=== PATIENT | female | born 1965 | race Caucasian/White ===

== ENCOUNTER 2016-08-28 23:36 | Emergency (ER) | payer SELFPAY ==
[2016-08-29 01:05] LABS: ABSOLUTE BASOPHILS # (AUTO) 0.1 10^3/uL (0.0-0.2); ABSOLUTE EOSINOPHILS # (AUTO) 0.4 10^3/uL (0.0-0.6); ABSOLUTE LYMPHOCYTES (AUTO) 3.3 10^3/uL (0.5-4.7); ABSOLUTE MONOCYTES (AUTO) 1.1 10^3/uL (0.1-1.4); ABSOLUTE NEUT (AUTO) 6.1 10^3/uL (1.7-8.2); BASOPHILS % (AUTO) 1.3 % (0-2); EOSINOPHILS % (AUTO) 3.3 % (0-6); HEMATOCRIT 39.9 % (36.0-47.0); HEMOGLOBIN 13.5 g/dL (12.0-15.5); HGB HCT DIFFERENCE 0.6; LYMPHOCYTES % (AUTO) 29.9 % (13-45); MEAN CORPUSCULAR HEMOGLOBIN 29.3 pg (27.0-33.4); MEAN CORPUSCULAR HGB CONC 33.8 g/dL (32.0-36.0); MEAN CORPUSCULAR VOLUME 87 fl (80-97); MONOCYTES % (AUTO) 10.2 % (3-13); RED BLOOD COUNT 4.61 10^6/uL (3.72-5.28); RED CELL DISTRIBUTION WIDTH 12.5 % (11.5-14.0); SEGMENTED NEUTROPHILS % (AUTO) 55.3 % (42-78)
[2016-08-29 01:17] LABS: ALANINE AMINOTRANSFERASE 56 U/L (9-52); ALBUMIN 4.3 g/dL (3.5-5.0); ALKALINE PHOSPHATASE 111 U/L (38-126); ANION GAP 13 (5-19); ASPARTATE AMINO TRANSFERASE 23 U/L (14-36); BILIRUBIN,DIRECT 0.3 mg/dL (0.0-0.4); BILIRUBIN,TOTAL 0.4 mg/dL (0.2-1.3); BLOOD UREA NITROGEN 11 mg/dL (7-20); CALCIUM 10.1 mg/dL (8.4-10.2); CARBON DIOXIDE 23 mmol/L (22-30); CHLORIDE 109 mmol/L (98-107); CREATININE RESULT 0.77 mg/dL (0.52-1.25); GLUCOSE 96 mg/dL (75-110); POTASSIUM 4.5 mmol/L (3.6-5.0); TOTAL PROTEIN 7.7 g/dL (6.3-8.2)
[2016-08-29] MEDS ORDERED: SULFAMETHOXAZOLE/TRIMETHOPRIM 800-160 MG TABLET PO ONE (02:53)
[2016-08-29] MEDS ORDERED: CEPHALEXIN 500 MG CAPSULE PO ONE (02:53)
[2016-08-29] MEDS ORDERED: HYDROCODONE/ACETAMINOPHEN 5-325 MG 6 TAB/DSPK PO PRN (02:53)
[2016-08-29] MEDS ORDERED: ONDANSETRON ODT 4 MG TAB (6 TAB/DSPK) PO PRN (02:53)
[2016-08-29] MEDS ORDERED: SILVER SULFADIAZINE 1% CREAM 50 GM TP ONE (02:54)
[2016-08-29] MEDS ORDERED: CIPROFLOXACIN HCL 500 MG TABLET PO ONE (02:58)
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
[2016-08-29] MEDS ORDERED: SILVER SULFADIAZINE 1% CREAM 50 GM ONE (03:33)
[2016-08-29 04:04] VITALS: BP 128/87
== END 2016-08-29 04:01 | disposition home or self-care (01) ==
LOC: ER 23:36
DX: T24.211A Burn of second degree of right thigh, initial encounter (principal); R53.83 Other fatigue; R11.0 Nausea; R50.9 Fever, unspecified; X08.8XXA Exposure to other specified smoke, fire and flames, initial encounter
CPT/HCPCS: 36415; 80053; 85025; 99283; J3490

== ENCOUNTER 2016-10-21 17:54 | Emergency (ER) | payer SELFPAY ==
--- NOTE | 2016-10-21 19:03 | ER Document Report ---
ED Medical Screen (RME) - General TRAVEL OUTSIDE OF THE [place] IN LAST 30 DAYS: No <STEFANI DICKEY - Last Filed: 10/21/16 18:59> <CINDY CORRAL - Last Filed: 12/04/16 14:09> - General Chief Complaint: Chest Pain Stated Complaint: CHEST PAIN Notes: Patient is a 51-year-old female presenting to the emergency department for right upper quadrant abdominal pain and right flank pain. Patient states her pain has been present over the past few days. Pain is exacerbated with food. Patient states her pain was waxing and waning but now it is getting worse. Patient complains of vomiting but denies diarrhea, fever, or any injuries. Patient states she is a history of kidney stones. I have greeted and performed a rapid initial assessment of this patient. A comprehensive ED assessment and evaluation of the patient, analysis of test results and completion of the medical decision making process will be conducted by additional ED providers. (STEFANI DICKEY) - Related Data Allergies/Adverse Reactions: bananas Adverse Reaction (Severe, Uncoded 10/21/16 18:50) swelling gas hives Past Medical History - Past Medical History Cardiac Medical History: Reports: Hx Hypertension Renal/ Medical History: Reports: Hx Kidney Stones. Denies: Hx Peritoneal Dialysis Past Surgical History: Reports: Hx Hysterectomy - partial, Hx Orthopedic Surgery - back - Immunizations Hx Diphtheria, Pertussis, Tetanus Vaccination: Yes <STEFANI DICKEY - Last Filed: 10/21/16 18:59> - Social History Cigarette use (# per day): No <CINDY CORRAL - Last Filed: 12/04/16 14:09> Review of Systems - Review of Systems -: Yes All other systems reviewed and negative <CINDY CORRAL - Last Filed: 12/04/16 14:09> Physical Exam <STEFANI DICKEY - Last Filed: 10/21/16 18:59> <CINDY CORRAL - Last Filed: 12/04/16 14:09> - Vital signs Vitals: Temp Pulse Resp BP Pulse Ox 97.9 F 102 H 18 146/89 H 96 10/21/16 18:21 10/21/16 18:21 10/21/16 18:21 10/21/16 18:21 10/21/16 18:21 - Notes Notes: GENERAL: Alert, appears uncomfortable, pacing in room and clutching right side. Mild distress. LUNGS: Clear to auscultation bilaterally, no wheezes, rales, or rhonchi. No respiratory distress. HEART: Regular rate and rhythm. No murmurs, gallops, or rubs. ABDOMEN: Tenderness to palpation in the right upper quadrant, mild right CVA tenderness; pain appears to be more lateral on the right side. (STEFANI DICKEY) Course - Laboratory Result Diagrams: 10/21/16 19:11 10/21/16 19:11 <CINDY CORRAL - Last Filed: 12/04/16 14:09> - Vital Signs Vital signs: Temp Pulse Resp BP Pulse Ox 98.0 F 102 H 16 129/84 H 98 10/22/16 00:25 10/21/16 18:21 10/22/16 00:30 10/22/16 00:30 10/22/16 00:30 - Laboratory Laboratory results interpreted by me: 10/21/16 10/21/16 10/21/16 19:11 19:11 19:45 Monocytes % 13.8 H Eosinophils % 6.7 H Absolute Monocytes 1.5 H Absolute Eosinophils 0.7 H Glucose 113 H Urine Blood SMALL H Doctor's Discharge <STEFANI DICKEY - Last Filed: 10/21/16 18:59> <CINDY CORRAL - Last Filed: 12/04/16 14:09> - Discharge Clinical Impression: Rib pain, Thoracic back pain Condition: Good Disposition: HOME, SELF-CARE Additional Instructions: Your chest wall pain is due to inflammation of your ribs. This pain can last for up to 6 weeks. It is very important that you continue to take purposeful deep breaths. For your pain: Continue to take ibuprofen 600 mg every 6 hours or Tylenol 1000 mg every 6 hours. Apply local lidocaine to the area per bottle instructions. There is a product sold [id number] called "Aspercreme with lidocaine" that you can use for this purpose. Please follow-up with her primary care doctor in the next 2-3 days. Return to the emergency department immediately if you develop worsening shortness of breath, increased pain, begin coughing blood, pass out, or have any other symptoms that are worrisome to you. Scribe Documentation - Scribe Written by Jame:: Jame Warren, 10/21/2016 1900 acting as scribe for :: Vishnu <STEFANI DICKEY - Last Filed: 10/21/16 18:59>
[2016-10-21] MEDS ORDERED: HYDROMORPHONE HCL INJ/PF 2 MG/ML AMPULE IV ONE ×2 (19:14→20:57)
[2016-10-21] MEDS ORDERED: ONDANSETRON HCL INJ/PF 4 MG/2 ML SDV IV ONE ×2 (19:14→20:22)
[2016-10-21] MEDS ORDERED: NORMAL SALINE 500 ML IV ONE (19:19)
[2016-10-21 19:35] LABS: ABSOLUTE BASOPHILS # (AUTO) 0.1 10^3/uL (0.0-0.2); ABSOLUTE EOSINOPHILS # (AUTO) 0.7 10^3/uL (0.0-0.6); ABSOLUTE LYMPHOCYTES (AUTO) 3.7 10^3/uL (0.5-4.7); ABSOLUTE MONOCYTES (AUTO) 1.5 10^3/uL (0.1-1.4); ABSOLUTE NEUT (AUTO) 4.6 10^3/uL (1.7-8.2); BASOPHILS % (AUTO) 1.1 % (0-2); EOSINOPHILS % (AUTO) 6.7 % (0-6); HEMATOCRIT 38.6 % (36.0-47.0); HGB HCT DIFFERENCE 0.4; LYMPHOCYTES % (AUTO) 34.9 % (13-45); MEAN CORPUSCULAR HEMOGLOBIN 29.5 pg (27.0-33.4); MEAN CORPUSCULAR HGB CONC 33.8 g/dL (32.0-36.0); MEAN CORPUSCULAR VOLUME 87 fl (80-97); MONOCYTES % (AUTO) 13.8 % (3-13); RED BLOOD COUNT 4.43 10^6/uL (3.72-5.28); SEGMENTED NEUTROPHILS % (AUTO) 43.5 % (42-78); WHITE BLOOD COUNT 10.5 10^3/uL (4.0-10.5)
[2016-10-21 19:58] LABS: ALANINE AMINOTRANSFERASE 29 U/L (9-52); ALBUMIN 4.3 g/dL (3.5-5.0); ALKALINE PHOSPHATASE 96 U/L (38-126); ANION GAP 13 (5-19); ASPARTATE AMINO TRANSFERASE 32 U/L (14-36); BILIRUBIN,DIRECT 0.3 mg/dL (0.0-0.4); BILIRUBIN,TOTAL 0.4 mg/dL (0.2-1.3); BLOOD UREA NITROGEN 14 mg/dL (7-20); CALCIUM 9.8 mg/dL (8.4-10.2); CARBON DIOXIDE 24 mmol/L (22-30); CHLORIDE 101 mmol/L (98-107); CREATININE RESULT 0.75 mg/dL (0.52-1.25); GLUCOSE 113 mg/dL (75-110); LIPASE 84.9 U/L (23-300); POTASSIUM 4.4 mmol/L (3.6-5.0); TOTAL PROTEIN 7.9 g/dL (6.3-8.2)
[2016-10-21 20:08] LABS: APPEARANCE,URINE CLEAR; BILIRUBIN,URINE NEGATIVE (NEGATIVE); GLUCOSE, URINE NEGATIVE (NEGATIVE); KETONES,URINE NEGATIVE (NEGATIVE); LEUKOCYTE ESTERASE,URINE NEGATIVE (NEGATIVE); NITRITE,URINE NEGATIVE (NEGATIVE); PROTEIN,URINE NEGATIVE (NEGATIVE); URINE SPECIFIC GRAVITY 1.018; UROBILINOGEN,URINE NEGATIVE mg/dL (<2.0)
--- NOTE | 2016-10-21 20:59 | RADIOLOGY REPORT (SQ) ---
EXAM DESCRIPTION: CT ABD/PELVIS NO ORAL OR IV COMPLETED DATE/TIME: 10/21/2016 8:43 pm REASON FOR STUDY: Right Flank pain COMPARISON: None. TECHNIQUE: CT scan of the abdomen and pelvis performed without intravenous or oral contrast. Images reviewed with lung, soft tissue, and bone windows. Reconstructed coronal and sagittal MPR images revi ewed. All images stored on PACS. All CT scanners at this facility use dose modulation, iterative reconstruction, and/or weight based d osing when appropriate to reduce radiation dose to as low as reasonably achievable (ALARA). [facility]: Dose Right [facility]: CareDose [facility]: Dose Right [facility]: Teradose 4D [facility]: PagerDuty RADIATION DOSE: 13.68mGy. LIMITATIONS: None. FINDINGS: LOWER CHEST: No significant findings. No nodules or infiltrates. NON-CONTRASTED LIVER, SPLEEN, ADRENALS: Evaluation limited by lack of IV contrast. No identified sign ificant masses. PANCREAS: No masses. No peripancreatic inflammatory changes. GALLBLADDER: No identified stones by CT criteria. No inflammatory changes to suggest cholecystitis. RIGHT KIDNEY AND URETER: No suspicious masses. Assessment limited by lack of IV contrast. No signif icant calcifications. No hydronephrosis or hydroureter. LEFT KIDNEY AND URETER: No suspicious masses. Assessment limited by lack of IV contrast. No signifi cant calcifications. No hydronephrosis or hydroureter. AORTA AND RETROPERITONEUM: No aneurysm. No retroperitoneal masses or adenopathy. BOWEL AND PERITONEAL CAVITY: No obvious masses or inflammatory changes. No free fluid. APPENDIX: Normal. PELVIS, BLADDER, AND ABDOMINAL WALL:No abnormal masses. No free fluid. Bladder normal. BONES: There are postsurgical changes in the lumbar spine. OTHER: No other significant finding. IMPRESSION: NO SIGNIFICANT OR ACUTE PROCESS IN THE ABDOMEN OR PELVIS. TECHNICAL DOCUMENTATION: JOB ID: [id number] Quality ID # 436: Final reports with documentation of one or more dose reduction techniques (e.g., Au tomated exposure control, adjustment of the mA and/or kV according to patient size, use of iterative reconstruction technique) 2010 [employer]- All Rights Reserved
[2016-10-21] MEDS ORDERED: LIDOCAINE 5% (700 MG) TRANSDERMAL ADH..PATCH TP ONE (22:20)
[2016-10-21] MEDS ORDERED: KETOROLAC TROMETHAMINE INJ/PF 30 MG/1 ML SDV IV ONE (22:20)
--- NOTE | 2016-10-21 22:22 | ER Document Report ---
ED General - General Chief Complaint: Chest Pain Stated Complaint: CHEST PAIN Time Seen by Provider: 10/21/16 18:55 Notes: Patient is a 51-year-old female with past medical history of chronic back pain with chronic narcotic dependency who presents with 3 days of progressively worsening right flank and upper abdominal pain. Does describe it as a severe, constant stabbing pain. States movement or taking a deep breath worsens the pain. Nothing improves the pain. She has not seen a primary care doctor regarding this pain. Notes that she has had several episodes of associated vomiting. Has been able to tolerate oral intake. Denies any acute injury to the area. No history of similar symptoms in the past. Denies any associated hemoptysis, shortness of breath or syncope. TRAVEL OUTSIDE OF THE [place] IN LAST 30 DAYS: No - Related Data Allergies/Adverse Reactions: bananas Adverse Reaction (Severe, Uncoded 10/21/16 18:50) swelling gas hives Past Medical History - General Information source: Patient - Social History Smoking Status: Never Smoker Frequency of alcohol use: None Drug Abuse: None Lives with: Spouse/Significant other Family History: Reviewed & Not Pertinent Patient has suicidal ideation: No Patient has homicidal ideation: No - Past Medical History Cardiac Medical History: Reports: Hx Hypertension Renal/ Medical History: Reports: Hx Kidney Stones. Denies: Hx Peritoneal Dialysis Past Surgical History: Reports: Hx Hysterectomy - partial, Hx Orthopedic Surgery - back - Immunizations Hx Diphtheria, Pertussis, Tetanus Vaccination: Yes Review of Systems - Review of Systems Notes: Constitutional: Negative for fever. HENT: Negative for sore throat. Eyes: Negative for visual changes. Cardiovascular: Negative for chest pain. Respiratory: Negative for shortness of breath. Gastrointestinal: Negative for abdominal pain, vomiting or diarrhea. Genitourinary: Negative for dysuria. Musculoskeletal: Positive for right lower rib pain Skin: Negative for rash. Neurological: Negative for headaches, weakness or numbness. 10 point ROS negative except as marked above and in HPI. Physical Exam - Vital signs Vitals: Temp Pulse Resp BP Pulse Ox 97.9 F 102 H 18 146/89 H 96 10/21/16 18:21 10/21/16 18:21 10/21/16 18:21 10/21/16 18:21 10/21/16 18:21 Interpretation: Hypertensive, Tachycardic Notes: PHYSICAL EXAMINATION: GENERAL: Appears mildly uncomfortable but in no acute distress HEAD: Atraumatic, normocephalic. EYES: Pupils equal round and reactive to light, extraocular movements intact, sclera anicteric, conjunctiva are normal. ENT: nares patent, oropharynx clear without exudates. Moist mucous membranes. NECK: Normal range of motion, supple without lymphadenopathy LUNGS: Breath sounds clear to auscultation bilaterally and equal. No wheezes rales or rhonchi. HEART: Regular rate and rhythm without murmurs Chest wall: Acutely reproducible pain on palpation of the right lower ribs and right low thoracic back ABDOMEN: Soft, nontender, normoactive bowel sounds. No guarding, no rebound. No masses appreciated. EXTREMITIES: Normal range of motion, no pitting or edema. No cyanosis. NEUROLOGICAL: No focal neurological deficits. Moves all extremities spontaneously and on command. PSYCH: Normal mood, normal affect. SKIN: Warm, Dry, normal turgor, no rashes or lesions noted. Course - Re-evaluation Re-evalutation: 10/21/16 22:21 Patient presents with 3 days of progressively worsening right lower rib pain. On examination she has no focal abdominal tenderness but does have acute tenderness of the right to most inferior ribs which are exacerbated by movement and palpation of the area. She also has associated spasm in her low back. Patient is on chronic narcotics and I suspect a component of hyperalgesia. The patient was mildly tachycardic at time of assessment and alternative diagnostic consideration would be an acute pulmonary embolus. Given her tachycardia she cannot be excluded by PERC criteria and a d-dimer assay will be obtained. In triage CT without contrast of the abdomen and pelvis was obtained apparently for concern of a history of possible nephrolithiasis although again today patient's history is not consistent with this diagnosis. A CT scan did not demonstrate any acute pathology and did visualize a normal gallbladder and no evidence of acute nephrolithiasis or perinephric stranding. No evidence of aortic pathology. If d-dimer is negative will plan for discharge home with a suspect diagnosis of musculoskeletal rib pain and supportive care. Remaining labs are otherwise unremarkable without any evidence of an acute pancreatitis, hepatitis. 10/21/16 23:51 D-dimer is negative. Patient's pain is improved at this time. Her vitals are otherwise remained within normal limits. At this time will discharge with return precautions and follow-up recommendations. Verbal discharge instructions given a the bedside and opportunity for questions given. Medication warnings reviewed. Patient is in agreement with this plan and has verbalized understanding of return precautions and the need for primary care follow-up in the next 24-72 hours. - Vital Signs Vital signs: Temp Pulse Resp BP Pulse Ox 98.0 F 102 H 16 129/84 H 98 10/22/16 00:25 10/21/16 18:21 10/22/16 00:30 10/22/16 00:30 10/22/16 00:30 - Laboratory Result Diagrams: 10/21/16 19:11 10/21/16 19:11 Laboratory results interpreted by me: 10/21/16 10/21/16 10/21/16 19:11 19:11 19:45 Monocytes % 13.8 H Eosinophils % 6.7 H Absolute Monocytes 1.5 H Absolute Eosinophils 0.7 H Glucose 113 H Urine Blood SMALL H - Diagnostic Test Radiology reviewed: Reports reviewed - EKG Interpretation by Me Additional EKG results interpreted by me: 10/22/16 03:42 Normal sinus rhythm. Rate 93. No ST elevations or depressions. QTC is 433. Discharge - Discharge Clinical Impression: Rib pain Thoracic back pain Qualifiers: Chronicity: acute Back pain laterality: right Qualified Code(s): M54.6 - Pain in thoracic spine Condition: Good Disposition: HOME, SELF-CARE Additional Instructions: Your chest wall pain is due to inflammation of your ribs. This pain can last for up to 6 weeks. It is very important that you continue to take purposeful deep breaths. For your pain: Continue to take ibuprofen 600 mg every 6 hours or Tylenol 1000 mg every 6 hours. Apply local lidocaine to the area per bottle instructions. There is a product sold [id number] called "Aspercreme with lidocaine" that you can use for this purpose. Please follow-up with her primary care doctor in the next 2-3 days. Return to the emergency department immediately if you develop worsening shortness of breath, increased pain, begin coughing blood, pass out, or have any other symptoms that are worrisome to you.
[2016-10-22 01:06] VITALS: BP 129/84
--- NOTE | 2016-10-22 09:12 | EKG REPORT ---
SEVERITY:- ABNORMAL ECG - SINUS RHYTHM LEFT VENTRICULAR HYPERTROPHY : Confirmed by: Hannah Cintron MD 22-Oct-2016 09:11:39
== END 2016-10-22 00:35 | disposition home or self-care (01) ==
LOC: ER 17:54
DX: R07.81 Pleurodynia (principal); M54.6 Pain in thoracic spine; R07.9 Chest pain, unspecified; G89.29 Other chronic pain; R10.10 Upper abdominal pain, unspecified
CPT/HCPCS: 93005; 99285; 96374; 96375; 36415; 83690; 85025; 80053; 81001; 85379; 74176; 93010; J1885; J1170; J2405

== ENCOUNTER 2017-05-13 14:05 | Emergency (ER) | payer SELFPAY ==
--- NOTE | 2017-05-13 14:22 | ER Document Report ---
ED Fall - General Chief Complaint: Fall Stated Complaint: FALL/HIP PAIN Time Seen by Provider: 05/13/17 14:13 Mode of Arrival: Medic Information source: Patient, Emergency Med Personnel, [facility] Records Notes: This 52-year-old female patient reports she was coming out her front door when she fell down 2-[address] landing on her left hip. Reports lying there for quite some time until she remembered she had a cell phone in her bra so she called a neighbor for help. The neighbor tried to help her get up with a walker but she was unable to so they called 911. She is complaining of severe pain left hip, EMS did use a sheet to bind her pelvis and hips. They did not describe a shortened or rotated leg. The patient is on chronic pain management taking oxycodone 20 mg 4 times daily. TRAVEL OUTSIDE OF THE [place] IN LAST 30 DAYS: No - Related data Allergies/Adverse Reactions: bananas Adverse Reaction (Severe, Uncoded 05/13/17 14:09) swelling gas hives Past Medical History - General Information source: Patient, Legal Guardian, [facility] Records - Social History Smoking Status: Never Smoker Cigarette use (# per day): No Chew tobacco use (# tins/day): No Smoking Education Provided: No Frequency of alcohol use: None Drug Abuse: None Occupation: Employed Lives with: Family Family History: Reviewed & Not Pertinent Patient has suicidal ideation: No Patient has homicidal ideation: No - Past Medical History Cardiac Medical History: Reports: Hx Hypertension Pulmonary Medical History: Reports: None EENT Medical History: Reports: None Neurological Medical History: Reports: None Endocrine Medical History: Reports: None Renal/ Medical History: Reports: Hx Kidney Stones GI Medical History: Reports: None Musculoskeltal Medical History: Reports Other - Chronic low back pain on pain management Psychiatric Medical History: Reports: None Past Surgical History: Reports: Hx Hysterectomy, Hx Kidney (Renal Surgery) - lithrotripsy, Hx Orthopedic Surgery - 4 back surgeries including fusions - Immunizations Hx Diphtheria, Pertussis, Tetanus Vaccination: Yes Review of Systems - Review of Systems Constitutional: No symptoms reported EENT: No symptoms reported Cardiovascular: No symptoms reported Respiratory: No symptoms reported Gastrointestinal: No symptoms reported Genitourinary: No symptoms reported Female Genitourinary: Post menopausal Musculoskeletal: See HPI, Back pain Skin: No symptoms reported Hematologic/Lymphatic: No symptoms reported Neurological/Psychological: No symptoms reported Physical Exam - Vital signs Vitals: Temp Pulse Resp BP Pulse Ox 97.9 F 94 20 136/86 H 100 05/13/17 14:08 05/13/17 14:08 05/13/17 14:08 05/13/17 14:08 05/13/17 14:08 Interpretation: Normal - General General appearance: Alert, Anxious In distress: Mild - HEENT Head: Normocephalic, Atraumatic Eyes: Normal Pupils: PERRL - Respiratory Respiratory status: No respiratory distress - Cardiovascular Rhythm: Regular - Abdominal Inspection: Normal Bowel sounds: Normal Tenderness: Nontender - Back Back: Normal - Extremities General upper extremity: Normal inspection General lower extremity: Tender - Tenderness to palpate the left lateral hip over the greater trochanter and going just distally. There is no ecchymosis noted at this time. - Neurological Neuro grossly intact: Yes - Psychological Associated symptoms: Normal affect, Normal mood - Skin Skin Temperature: Warm Skin Moisture: Dry Skin Color: Normal Course - Vital Signs Vital signs: Temp Pulse Resp BP Pulse Ox 97.9 F 94 20 136/86 H 100 05/13/17 14:08 05/13/17 14:08 05/13/17 14:08 05/13/17 14:08 05/13/17 14:08 - Diagnostic Test Radiology reviewed: Image reviewed, Reports reviewed - X-rays of the left hip do not show fracture Discharge - Discharge Clinical Impression: Contusion of left hip Qualifiers: Encounter type: initial encounter Qualified Code(s): S70.02XA - Contusion of left hip, initial encounter Condition: Stable Disposition: HOME, SELF-CARE Additional Instructions: Contusion: Your injury has resulted in a contusion -- a crushing of the deep tissues. No injury to important structures was detected during the physician's exam. Contusions vary in the amount of pain they cause, and in the length of time required for healing. Typically, the area will become bruised, and will remain painful to touch for two or three weeks. However, most patients are back to working and playing within a few days. After the initial period of rest and cold-packs, your symptoms (together with the doctor's recommendations) will determine how rapidly you can get back to full activity. Usually this means "do what feels okay, but don't do things that hurt." If re-examination was recommended, it's important to follow up as instructed. Call the doctor or return any time if pain increases, if swelling becomes severe, if you develop numbness or weakness in an injured extremity, or if any other alarming symptoms occur. //////////////////////////////////////////////////////////////////////////////// //////////////////////////////////////////////////////////////////////////////// / Rest. Use ice packs to the painful area today and tonight. Limit walking. Use a cane to help support your weight if needed. Continue taking your regular pain medications. Follow-up with your primary care provider if not improving. RETURN TO THE EMERGENCY ROOM IF ANY NEW OR WORSENING SYMPTOMS.
--- NOTE | 2017-05-13 15:11 | RADIOLOGY REPORT (SQ) ---
EXAM DESCRIPTION: HIP LEFT AP/LATERAL COMPLETED DATE/TIME: 05/13/2017 3:02 pm REASON FOR STUDY: Fall, left hip pain COMPARISON: None. NUMBER OF VIEWS: Two views. TECHNIQUE: AP pelvis and additional frog-leg view of the left hip. LIMITATIONS: None. FINDINGS: MINERALIZATION: Normal. LEFT HIP: No fracture or dislocation. No worrisome bone lesions. RIGHT HIP: No fracture or dislocation. No worrisome bone lesions. PUBIS AND ISCHIUM: No fracture. PELVIS: No fracture. SACRUM: No fracture or dislocation. No worrisome bone lesions. LOWER LUMBAR SPINE: Surgical changes with hardware. SOFT TISSUES: No findings. OTHER: No other significant finding. IMPRESSION: NEGATIVE STUDY OF THE LEFT HIP AND PELVIS. NO RADIOGRAPHIC EVIDENCE OF ACUTE INJURY. TECHNICAL DOCUMENTATION: JOB ID: [id number] [email or web address] All Rights Reserved
[2017-05-13 16:41] VITALS: BP 128/82
== END 2017-05-13 16:35 | disposition home or self-care (01) ==
LOC: ER 14:05
DX: S70.02XA Contusion of left hip, initial encounter (principal); W10.9XXA Fall (on) (from) unspecified stairs and steps, initial encounter; I10 Essential (primary) hypertension; M54.5 Low back pain; G89.29 Other chronic pain; Z79.891 Long term (current) use of opiate analgesic; Z98.1 Arthrodesis status
CPT/HCPCS: 99284